=== PATIENT | male | born 1995 | race Caucasian/White ===

== ENCOUNTER 2016-11-19 08:09 | Observation (INO) | payer SELFPAY ==
--- NOTE | 2016-11-19 08:47 | EDPHY ---
H & P Stated Complaint: nausea,sweats, left sided upper back pain Time Seen by Provider: 11/19/16 08:42 HPI/ROS: CHIEF COMPLAINT: Chest pain, congestion HISTORY OF PRESENT ILLNESS: Patient is a 21-year-old man who states that he woke up this morning and had some shoulder discomfort. He thought that maybe he slept on it wrong but then he noticed some congestion in his chest. He is concerned about possible cardiac cause versus early bronchitis. He has not had a fever. He has not had a sore throat or runny nose. Headache weakness or lightheadedness. He does states that he feels anxious and cannot sit still. No cough or shortness of breath. REVIEW OF SYSTEMS: Constitutional: denies: chills, fever, recent illness, recent injury EENTM: denies: blurred vision, double vision, nose congestion Respiratory: denies: cough, shortness of breath Cardiac: See HPI Gastrointestinal/Abdominal: denies: abdominal pain, diarrhea, nausea, vomiting, blood streaked stools Genitourinary: denies: dysuria, frequency, hematuria, pain Musculoskeletal: denies: joint pain, muscle pain Skin: denies: lesions, rash, jaundice, bruising Neurological: denies: headache, numbness, paresthesia, tingling, dizziness, weakness Hematologic/Lymphatic: denies: blood clots, easy bleeding, easy bruising Immunologic/allergic: denies: HIV/AIDS, transplant EXAM: GENERAL: Well-appearing, well-nourished and in no acute distress. HEAD: Atraumatic, normocephalic. EYES: Pupils equal round and reactive to light, extraocular movements intact, sclera anicteric, conjunctiva are normal. ENT: TMs normal, nares patent, oropharynx clear without exudates. Moist mucous membranes. NECK: Normal range of motion, supple without lymphadenopathy or JVD. LUNGS: Breath sounds clear to auscultation bilaterally and equal. No wheezes rales or rhonchi. HEART: Regular rate and rhythm without murmurs, rubs or gallops. ABDOMEN: Soft, nontender, normoactive bowel sounds. No guarding, no rebound. No masses appreciated. BACK: No CVA tenderness, no spinal tenderness, step-offs or deformities EXTREMITIES: Normal range of motion, no pitting or edema. No clubbing or cyanosis. NEUROLOGICAL: Cranial nerves II through XII grossly intact. Normal speech, normal gait. 5/5 strength, normal movement in all extremities, normal sensation PSYCH: Normal mood, normal affect. SKIN: Warm, dry, normal turgor, no visible rashes or lesions. Source: Patient Exam Limitations: No limitations - Personal History Current Tetanus Diphtheria and Acellular Pertussis (TDAP): Unsure - Medical/Surgical History Hx Asthma: No Hx Chronic Respiratory Disease: No Hx Diabetes: No Hx Cardiac Disease: No Hx Renal Disease: No Hx Cirrhosis: No Hx Alcoholism: No Hx HIV/AIDS: No Hx Splenectomy or Spleen Trauma: No Other PMH: none - Family History Significant Family History: No pertinent family hx - Social History Smoking Status: Current every day smoker Alcohol Use: Sober Drug Use: None Constitutional: Initial Vital Signs Heart Rate 53 L 11/19/16 08:21 Respiratory Rate 16 11/19/16 08:21 Blood Pressure 153/99 H 11/19/16 08:21 O2 Sat (%) 100 11/19/16 08:21 O2 Delivery Mode Room Air Allergies/Adverse Reactions: No Known Allergies Allergy (Unverified 11/19/16 08:20) Home Medications: Medication Instructions Recorded Acetaminophen [Tylenol 325mg (*)] 650 mg PO Q4HRS PRN #0 tab 11/20/16 Colchicine [Colchicine (*)] 0.6 mg PO BID #60 ea 11/20/16 Ibuprofen [Motrin (*)] 600 mg PO Q6HRS #120 tab 11/20/16 Pantoprazole Sodium [Protonix 40mg 40 mg PO DAILY #30 tab 11/20/16 (*)] Medical Decision Making - Diagnostics EKG Interpretation: An EKG obtained and was read and documented in trace view. Please see trace view for full reading and report. Sinus rhythm with significant ST elevation in anterior and lateral leads, no obvious reciprocal changes ED Course/Re-evaluation: 9:10 a.m. the patient has a very concerning EKG. Considering his age acute coronary syndrome is lower on the differential list. This is likely pericarditis versus benign early report however considering his symptoms of back pain and knee scope 2 months ago I will order a PE workup and CT scan of his chest. Also consulted with Dr. Juan R Doherty over the phone who evaluated the patient's EKG and requested a stat echocardiogram and will be here to evaluate the patient soon. 9:[address] Doherty is at the bedside evaluating the patient. 9:[address] Doherty is evaluating the patient with echocardiogram. He feels that this is likely pericarditis however he has some hypokinesis in his left ventricle apex and will take him to the quality control lab technician for further evaluation. We will hold on the CT angiogram for now. Differential Diagnosis: Partial list of the Differential diagnosis considered include but were not limited to; acute coronary disease, pericarditis, PE musculoskeletal pain, pleurisy and although unlikely based on the history and physical exam, I also considered pneumonia, pneumothorax. Critical Care Time: Critical care time spent by me, Dr. Torres exclusive with this patient was 35 minutes, exclusive of the PA time exclusive of procedures. The organ system that was at risk was cardiovascular and I gave IV fluids, aspirin, consultation preparation for quality control lab technician to prevent worsening of the patient's condition - Data Points Laboratory Results: Laboratory Results 11/19/16 09:17 11/19/16 08:52 Medications Given: Discontinued Medications Aspirin (Aspirin) 324 mg PO EDNOW ONE Stop: 11/19/16 09:11 Last Admin: 11/19/16 09:19 Dose: 324 mg Colchicine (Colchicine) 0.6 mg PO BID HILDA Stop: 05/18/17 10:59 Last Admin: 11/20/16 08:29 Dose: 0.6 mg Ketorolac Tromethamine (Toradol) 30 mg IVP ONCE ONE Stop: 11/19/16 10:38 Last Admin: 11/19/16 13:03 Dose: Not Given Ondansetron HCl (Zofran) 4 mg IVP EDNOW ONE Stop: 11/19/16 08:52 Last Admin: 11/19/16 08:57 Dose: 4 mg Pantoprazole Sodium (Protonix) 40 mg PO DAILY HILDA Stop: 05/18/17 10:59 Last Admin: 11/20/16 08:28 Dose: 40 mg Departure - Departure Disposition: To OP Cath/Surgery Clinical Impression: Chest pain Condition: Fair
[2016-11-19] MEDS ORDERED: ONDANSETRON 4 MG/2 ML VIAL IVP ONE (08:51)
--- NOTE | 2016-11-19 09:02 | CPEKG ---
Heart Rate: 51 RR Interval: 1176 P-R Interval: 136 QRSD Interval: 118 QT Interval: 388 QTC Interval: 358 P [place]: 10 QRS [place]: 42 T Wave [place]: 27 EKG Severity - ABNORMAL ECG - EKG Impression: SINUS RHYTHM EKG Impression: NONSPECIFIC INTRAVENTRICULAR CONDUCTION DELAY EKG Impression: DIFFUSE ST ELEVATION Electronically Signed By: Enoch Torres 19-Nov-2016 09:15:31
[2016-11-19] MEDS ORDERED: ASPIRIN 81 MG CHEWABLE TAB PO ONE (09:10)
[2016-11-19 09:18] LABS: % IMMATURE GRANULYOCYTES 0.5 % (0.0-1.1); ABSOLUTE IMMATURE GRANULOCYTES 0.03 10^3/uL (0.00-0.10); ADD DIFF? NO; ADD MORPH? NO; ADD SCAN? NO; ATYPICAL LYMPHOCYTE FLAG 20 (0-99); FRAGMENT RBC FLAG 20 (0-99); HEMATOCRIT 49.8 % (40.0-51.0); HEMOGLOBIN 17.4 g/dL (13.7-17.5); LEFT SHIFT FLG 10 (0-99); LIPEMIA HEMOLYSIS FLAG 90 (0-99); MEAN CELL HEMOGLOBIN 29.6 pg (27.9-34.1); MEAN CELL HEMOGLOBIN CONCENTR. 34.9 g/dL (32.4-36.7); MEAN CELL VOLUME 84.8 fL (81.5-99.8); MEAN PLATELET VOLUME 10.4 fL (8.7-11.7); PLATELET CLUMPS FLAG 10 (0-99); PLATELET COUNT 295 10^3/uL (150-400); RED BLOOD CELL COUNT 5.87 10^6/uL (4.40-6.38); RED CELL DISTRIBUTION WIDTH 12.5 % (11.5-15.2)
[2016-11-19 09:25] LABS: APTT 24.8 SEC (23.0-38.0); INR 0.98 (0.83-1.16); PROTIME(PATIENT) 12.9 SEC (12.0-15.0)
[2016-11-19] MEDS ORDERED: LIDOCAINE 1% 30 ML SDV ONE (09:42)
[2016-11-19] MEDS ORDERED: fentaNYL 100 MCG/2 ML INJ ONE ×2 (09:42→10:14)
[2016-11-19] MEDS ORDERED: IOPAMIDOL (ISOVUE-370) 150 ML BTL IV ONE (09:43)
[2016-11-19] MEDS ORDERED: MIDAZOLAM 2 MG/2 ML VIAL ONE ×2 (09:43→10:14)
[2016-11-19 09:47] LABS: ANION GAP 12 mEq/L (8-16); CALCIUM 10.1 mg/dL (8.5-10.4); CARBON DIOXIDE 26 mEq/l (22-31); CHLORIDE 106 mEq/L (97-110); CREATININE 0.8 mg/dL (0.7-1.3); GLOMERULAR FILTRATION RATE > 60; GLUCOSE 107 mg/dL (70-100); POTASSIUM 3.9 mEq/L (3.5-5.2)
[2016-11-19 10:03] LABS: SODIUM 144 mEq/L (134-144)
--- NOTE | 2016-11-19 10:30 | GCON ---
[f rep st] CONSULTATION CARDIOLOGY CONSULT DATE OF CONSULTATION: 11/19/2016 INDICATIONS: Chest pain, abnormal ECG. 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 He is seen in the emergency department with acute chest pain. At his baseline, he is very active and healthy. He likes to play basketball and soccer. He usuall y does so with no limitations. He has no cardiovascular risks or documented cardiac disease. He states he was feeling well until this morning. He developed the abrupt onset of left-sided chest pressure and left scapular pain. This was slightly worse with deep inspiration, however, there was no positional change. The discomfort was, however, associated with nausea and diaphoresis. He als o felt a little bit short of breath. As result of these symptoms, he came to the emergency departme nt here. On arrival, he was noted to be hemodynamically stable. His initial blood pressure 153/99, with a heart rate of 53, and oxygen saturations of 100% on room air. When he was evaluated, puja massey he was complaining of 4/10 to 5/10 intensity chest discomfort. An ECG was performed, which demo nstrated sinus rhythm at 51 beats per minute. There were diffuse ST elevations noted up to 5 mm in the lateral precordial leads. These were concave upward with no reciprocal changes noted. A bedsid e echocardiogram was performed. He had no significant pericardial effusion. It was noted, however, that his apex was slightly hypokinetic. In talking to him, he states he feels a little bit better since he has come to the emergency department. He states he does not use drugs. Specifically, he d enied amphetamine and cocaine use. He states he uses marijuana occasionally, and several days ago, took some Adderall to help him study, although this tends to be infrequent. He drinks alcohol very infrequently. He has not had any recent febrile illnesses. The pain is not described as ripping or tearing. PAST MEDICAL HISTORY: He is otherwise healthy. PAST SURGICAL HISTORY: Approximately 2-3 months ago he had right knee ACL reconstruction performed. ALLERGIES: None. SOCIAL HISTORY: As stated above, he is a student at [employer]. He is originally from [place]. He drinks alcohol very rarely. Uses marijuana on a regular basis. He used Adderall several days ago. He denies more illicit substance use. He is very active. He is unmarried. FAMILY HISTORY: He has no family history for premature atherosclerosis or sudden cardiac . CURRENT MEDICATIONS: He takes no prescription medications. REVIEW OF SYSTEMS: A full 10-point review of systems was performed and is otherwise negative. PHYSICAL EXAM: VITAL SIGNS: Blood pressure 153/99, heart rate 53, O2 sats 100%, respiratory rate 1 6. GENERAL: Healthy [place] male in no acute distress. HEENT: No jugular venous distention , adenopathy or thyromegaly. RESPIRATORY: Breathing easy, resting comfortably, using no accessory muscles. On auscultation, he has clear lung shook bilaterally. CARDIAC: Precordial inspection un remarkable. PMI is nondisplaced. He has no reproducible chest wall tenderness. On auscultation, h e has a regular rate and rhythm without murmurs, gallops, or rubs. ABDOMEN: Soft and nontender. H e has normoactive bowel sounds. No masses are noted. There is no hepatosplenomegaly. Abdominal ao rta is not palpable. EXTREMITIES: Warm and dry and well perfused. He has no edema. VASCULATURE: He has 2+ radial, dorsal pedal, posterior tibial, and femoral arterial pulses bilaterally. DATABASE: His ECG is as described above. His white blood cell count is 6.23, hemoglobin 17.4, plat elet count 295,000. INR 0.98. Sodium 144, potassium 3.9, chloride 106, bicarbonate 26, BUN 14, cre atinine 0.8, glucose 107, calcium 10.1, troponin pending. IMPRESSION: The patient is 21 years old and presents with acute chest pain with a markedly abnormal electrocardiogram. Overall, my leading suspicion is that he has developed pericarditis. There may be a certain component of myocarditis contributing to his symptoms. His echocardiogram is, however , abnormal indicating hypokinesis of the apex. Therefore, I think it is prudent that we proceed wit h coronary angiography to evaluate for the possibility of a significant coronary spasm or potentiall y dissection. The risks, benefits, and alternatives were discussed with him in detail. He agrees t o proceed with the planned procedure and has signed his consent forms. Further recommendations will be made pending the outcome of that study. /[id number]/MODL
[2016-11-19] MEDS ORDERED: OXYCODONE/APAP 5/325 TAB PO PRN (10:32)
[2016-11-19] MEDS ORDERED: ONDANSETRON 4 MG/2 ML VIAL IVP PRN (10:32)
[2016-11-19] MEDS ORDERED: ACETAMINOPHEN 325 MG TAB PO PRN (10:32)
[2016-11-19] MEDS ORDERED: ONDANSETRON DISINTEGRATING 4 MG TAB PO PRN (10:32)
[2016-11-19] MEDS ORDERED: KETOROLAC 30 MG/1 ML SDV IVP ONE (10:37)
[2016-11-19] MEDS ORDERED: NITROGLYCERIN 0.4 MG BTL SL PRN (10:38)
[2016-11-19] MEDS ORDERED: ATROPINE SULFATE 1 MG/10 ML SYR IVP PRN (10:38)
[2016-11-19] MEDS ORDERED: IBUPROFEN 600 MG TAB PO PRN (10:43)
[2016-11-19] MEDS ORDERED: ATROPINE SULFATE 1 MG/10 ML SYR ONE (10:43)
[2016-11-19 10:51] LABS: HEMATOCRIT 51.1 % (40.0-51.0)
--- NOTE | 2016-11-19 10:53 | PDDXCAT ---
Diagnostic Cath Note - . Date: 11/19/16 First Helper: Chas Indication: other (Non ST elevation myocardial infarction.) - Procedure Access: right groin Procedure: left heart catheterization, coronary angiography, left ventriculogram - Materials Left Heart Cath size: 6F Left Heart Cath materials: standard multipack (JL4, JR4, pigtail) - Findings-Left Heart Catheterization LM: The left main is a small vessel approximately 3 mm. There is appropriate bifurcation into the LAD and circumflex distributions. There is no angiographic evidence of disease. LAD: The LAD is a small caliber vessel approximately 2-2.5 mm. There are 2 diagonal branches identified. There is no angiographic evidence of disease. LCX: The circumflex is a moderate caliber vessel. It is diminutive after the origin of the only obtuse marginal branch. There is no angiographic evidence of disease. RCA: The right coronary artery is dominant. There is the PDA, a posterolateral branch and a 2nd posterolateral branch arcade identified. The right coronary artery is angiographically free of disease. EDP: 111/6/23 mmHg. LVEF: 60-65%. Wall motion: There is a small area of apical akinesis. - Findings-Right Heart Catheterization AO: 113/71 mmHg. Complications: None. Closure method: manual pressure (None.) Assessment: No evidence of significant epicardial coronary disease. Small apical area of akinesis. Current clinical presentation likely that early viral myopericarditis. Plan: The patient will be admitted to telemetry. He will be treated with nonsteroidal anti-inflammatory agents. Serial cardiac enzymes will be drawn. He will be observed carefully for the next 24-48 hours. Intervention: None. Patient Problems: Problems Problem Status Onset Chest pain Acute
--- NOTE | 2016-11-19 11:03 | CPEKG ---
Heart Rate: 76 RR Interval: 789 P-R Interval: 144 QRSD Interval: 84 QT Interval: 356 QTC Interval: 401 P [place]: 19 QRS [place]: 53 T Wave [place]: 35 EKG Severity - NORMAL ECG - EKG Impression: SINUS RHYTHM EKG Impression: ST ELEV, PROBABLE NORMAL EARLY REPOL PATTERN EKG Impression: CONSIDER PERICARDITIS Electronically Signed By: Esteban Pedraza 20-Nov-2016 10:25:27
[2016-11-19] MEDS: COLCHICINE 0.6 MG CAP/TAB PO SCH ×2 (13:03→20:16)
--- NOTE | 2016-11-19 13:42 | ECHO ---
[id number] + + [address] : : [place] [address] : : [phone] + + Adult Echocardiographic Report + + :Name: RK EGAN Elaineselina Date: 11/19/2016 09:33 AM : : Hospital Admission Number: [id number] Lo cation: ER3: :: 1995 Gender: Male Height: 69 in : :Age: 21 yrs Race: WH Weight: 15 0 lb : : : : BSA: 1.8 m eters2 : :History: Chest Pain, Abnormal EKG : + + MMode/2D Measurements \T\ Calculations IVSd: 0.75 cm LVIDd: 3.7 cm FS: 33.1 % Ao root diam: 3.0 cm LVPWd: 0.87 cm LVIDs: 2.5 cm EDV(Teich): 58.9 ml ACS: 1.8 cm ESV(Teich): 22.1 ml EF(Teich): 62.5 % Normal Measurement Values: + + :LVIDd (3.5-5.7cm) IVSd (0.6-1.1cm) LVPWd (0.6-1.1cm) Aortic Root (2.0-3.7cm)Left Atrium (1.5-4.0cm): :LV Vol(d) (76-115ml) LV Vol(s) (29-48ml) Ejec Fraction (50-65%)PV Ortega (0.6- 1.2m/s) TV Ortega (0.4-1.0m/s) : :MV E Ortega (0.8-1.0m/s)MV A Ortega (0.3-1.0m/s)LVOT Ortega (0.7-1.2m/s) Asc Ao Ortega ( 0.9-1.8m/s) : + + Doppler Measurements \T\ Calculations MV E max ortega: Ao V2 max: LV V1 max: PA V2 max: 107.0 cm/sec 110.0 cm/sec 101.0 cm/sec 106.0 cm/sec Ao max PG: LV V1 max PG: PA max P.8 mmHg 4.1 mmHg 4.5 mmHg Left Ventricle The left ventricle is normal in size. There is normal left ventricular wall thickness. The left ventricular ejection fraction is normal. There is focal apical hypokinesis. Right Ventricle The right ventricle is normal in size and function. Atria The left atrial size is normal. Right atrial size is normal. Mitral Valve The mitral valve is normal in structure and function. There is no mitral valve stenosis. There is no mitral regurgitation noted. Tricuspid Valve The tricuspid valve is normal in structure and function. No tricuspid regurgitation. Aortic Valve The aortic valve is normal in structure and function. There is no aortic stenosis. There is no aortic insufficiency. Pulmonic Valve The pulmonic valve is normal in structure and function. There is no pulmonic valvular regurgitation. Great Vessels The aortic root is normal size. Pericardium/Pleural There is no pericardial effusion. Conclusion A complete two-dimensional transthoracic echocardiogram was performed (2D, M-mode, Doppler and color flow Doppler). Normal LV size and function. The left ventricular ejection fraction is normal. There is focal apical hypokinesis. The mitral valve is normal in structure and function. The tricuspid valve is normal in structure and function. The aortic valve is normal in structure and function. There is no pericardial effusion. Final Reading Physician: Kari Lyon signed on 11/19/2016 01:42 PM Ordering Physician: LEANA KELLER Performed By: Ravi Sandhu, RDCS
[2016-11-19] MEDS: PANTOPRAZOLE SODIUM 40 MG TAB PO SCH (14:48)
--- NOTE | 2016-11-19 16:37 | CPEKG ---
Heart Rate: 69 RR Interval: 870 P-R Interval: 140 QRSD Interval: 98 QT Interval: 364 QTC Interval: 390 P [place]: -4 QRS [place]: 55 T Wave [place]: 18 EKG Severity - NORMAL ECG - EKG Impression: SINUS RHYTHM EKG Impression: ST ELEV, PROBABLE NORMAL EARLY REPOL PATTERN EKG Impression: CONSIDER PERICARDITIS Electronically Signed By: Esteban Pedraza 20-Nov-2016 10:26:07
[2016-11-20 03:27] VITALS: TEMP 98.1
[2016-11-20] MEDS: PANTOPRAZOLE SODIUM 40 MG TAB PO SCH (08:28)
[2016-11-20] MEDS: COLCHICINE 0.6 MG CAP/TAB PO SCH (08:29)
[2016-11-20 09:07] VITALS: BP 125/67; PULSE 66; RESP 17; O2SAT 97
--- NOTE | 2016-11-20 09:19 | CPEKG ---
Heart Rate: 66 RR Interval: 909 P-R Interval: 136 QRSD Interval: 84 QT Interval: 376 QTC Interval: 394 P [place]: 3 QRS [place]: 51 T Wave [place]: 25 EKG Severity - ABNORMAL ECG - EKG Impression: SINUS RHYTHM EKG Impression: ST ELEVATION PROBABLE NORMAL EARLY REPOLARIZATION PATTERN EKG Impression: CONSIDER PERICARDITIS Electronically Signed By: Esteban Corrales 21-Nov-2016 08:22:31
--- NOTE | 2016-11-20 12:09 | GDS ---
[f rep st] DISCHARGE SUMMARY ADMISSION DIAGNOSES: 1. Acute chest pain. 2. Abnormal electrocardiogram. DISCHARGE DIAGNOSIS: Mild pericarditis. PROCEDURES DONE DURING HOSPITALIZATION: 1. Electrocardiogram. 2. Chest x-ray. 3. Echocardiogram. 4. Diagnostic coronary catheterization. BRIEF HISTORY: Please see H and P. Briefly, the patient is a 21-year-old male who is a student at [employer] reporting on the morning of November 19 waking up with severe midsternal chest p ressure. Pain was significant enough that he felt that he needed further evaluation and came to [facility]. HOSPITAL COURSE: Once admitted to the emergency department, initial electrocardiograms were done sh owing ST-elevation in diffuse leads. Troponin level was noted to be significantly elevated at 3.32. Stat echocardiogram was done at that time which showed normal LV size and function, EF estimated a t 62%, there was noted to be a focal apical hypokinesis, no pericardial effusion. It was felt that more than likely this was pericarditis, but with a mild focal apical hypokinesis noted on echocardio gram, there was some concern about potential coronary spasm and/or dissection. Patient was taken to the coronary catheterization lab urgently for further evaluation by Dr. Doherty. There, he underwent diagnostic left heart catheterization which showed left main with no angiographic evidence of disea se, LAD was small caliber but no angiographic evidence of disease, circumflex was moderate caliber, with no angiographic disease, RCA was dominant and free of disease. Ejection fraction in diastolic pressure was estimated at 23 mmHg, LVEF was 60% to 65% with a small area of apical akinesis noted. At that time, Dr. Doherty felt with this, more than likely chest pressure was due to mild pericarditis . Patient was transferred to CV and ultimately to the PCU for overnight observation. He remained in sinus rhythm with no malignant arrhythmias or pauses noted throughout the night. He had been sta rted on nonsteroidal anti-inflammatories of ibuprofen, colchicine, and Protonix for prophylaxis due to NSAID usage. He reports today that he has had no further episodes of chest pressure, his vital s igns remained stable, and he has been up and walking the unit without any significant symptoms. His electrocardiogram done this morning continues to show ST-elevation, but now more specifically anter ior lateral leads, not as significant as his initial EKG. PHYSICAL EXAMINATION: GENERAL APPEARANCE: Today thin, well-groomed male. He is alert and oriented to person, place, time, and situation. Appears to be under no acute distress. CURRENT VITAL SIGNS : Blood pressure of 125/67, heart rate 66 sinus rhythm on the monitor, respirations 17, saturation 97% on room air, temperature of 36.7 degrees Celsius. HEENT: Head is normocephalic. Lips and tong ue are pink and moist with no signs of cyanosis. Conjunctivae pink. NECK: Trachea is midline, no jugular vein distention, +2 carotid pulses bilateral, no auscultated bruits, trachea is midline. RE SPIRATORY: Lungs are clear to auscultation. No rhonchi, rales or wheezes. No accessory muscle use , no intercostal muscle retraction noted. CARDIAC: Regular rate, regular rhythm, S1, S2. No S3, S 4, gallops, murmurs, or rubs noted. ABDOMEN: Soft, nontender, bowel sounds x4 quadrants, no organo megaly, no palpable masses. SKIN: [place], warm, dry. No cyanosis, no clubbing, no peripheral edema. VASCULAR: +2 carotids bilateral, +2 radials bilateral, +2 posterior tibial pulses bilateral. Cat heter insertion site, right groin site, no redness, swelling, drainage, ecchymosis, or hematoma note d at site. No auscultated bruit. CMS checks within normal limits to both lower extremities. NEURO : Cranial nerves 2-12 grossly intact. LABORATORY STUDIES: On admission, laboratory studies showed WBC 6.23, hemoglobin 17.4, hematocrit o f 51.1, platelet count of 295. INR was noted to be 0.8. D-dimer 0.29. Sodium 144, potassium 3.9, chloride 106, CO2 of 26, BUN 14, creatinine 0.8, glucose 107, calcium 10.1. The proBNP was 38. Pat ient has had 3 or 4 troponin levels done. Initial on admission was 3.320, yesterday at 12 noon, it elevated up to 7.850; at 3 p.m., it was 7.60; and final troponin done yesterday evening at 6:30 was 7.420. DISCHARGE DISPOSITION: Patient will be discharged home in stable condition. Activity restrictions of not lifting more than 10 pounds for the next week and no strenuous activities for the next 2 week s. DISCHARGE MEDICATIONS: Please see discharge med reconciliation sheet. Note: Patient has been star alejandro on ibuprofen 600 mg every 6 hours around the clock which he has been asked to take until he is s een in Cardiology Clinic on Saturday. He has also been started on colchicine 0.6 mg p.o. b.i.d. and P rotonix 40 mg p.o. q. day. DISCHARGE INSTRUCTIONS: Medication compliancy and importance for followup were explained to the pat ient with pericarditis. He verbalized understanding. Post cardiac catheterization discharge instru ctions went over with the patient including monitoring for signs of infection, activity restrictions , bleeding precautions, and monitoring for signs of infection. At the time of discharge, patient ve rbalizes understanding all instructions and has no questions. He has been set up to have a followup appointment with Dr. Arizmendi, Dr. Doherty's partner, Saturday of this week in which electrocardiogram nora l also be done. Patient at the time of discharge reports no further questions or concerns. He has been told that if any further issues come up post discharge, he is to call our office or return to [facility]. Total time spent on discharge greater than 30 minutes. /[id number]/MODL
== END 2016-11-20 11:53 | disposition home or self-care (01) ==
LOC: F2W 13:23
PROVIDERS: ADMIT Internal Medicine Cardiovascular Disease; ATTEND Internal Medicine Cardiovascular Disease
DX: I31.9 Disease of pericardium, unspecified (principal)
CPT/HCPCS: 71020; 93005; 93306; 93458; G0378; 82947-QW; 96374; J0461; J1644; J1885; J2250; J2405; J3010; Q9967